=== PATIENT | female | born 1960 | race Caucasian/White ===

== ENCOUNTER 2022-02-18 08:00 | Outpatient (CLI) | payer OTHER | END 2022-02-18 23:59 | disposition home or self-care (01) | LOC: LAB.N 08:00 | PROVIDERS: ATTEND Physician Assistant Medical | DX: R30.0 Dysuria (principal) | CPT/HCPCS: 87086 ==

== ENCOUNTER 2022-02-23 11:08 | Outpatient (CLI) | payer OTHER ==
[2022-02-23 19:02] LABS: BASOPHILS % (AUTO) 0.5 %; EOSINOPHILS # (AUTO) 0.3 10^3/uL (0.0-0.7); EOSINOPHILS % (AUTO) 4.9 %; HCT - HEMATOCRIT 40.3 % (37.0-47.0); HGB - HEMOGLOBIN 12.9 g/dL (12.0-16.0); LYMPHOCYTES # (AUTO) 1.8 10^3/uL (1.5-3.5); LYMPHOCYTES % (AUTO) 31.8 %; MEAN CORPUSCULAR HEMOGLOBIN 28.6 pg (27.0-31.0); MEAN CORPUSCULAR VOLUME 89.4 fL (81.0-99.0); MEAN PLATELET VOLUME 11.5 fL (7.9-10.8); MONOCYTES # (AUTO) 0.4 10^3/uL (0.0-1.0); MONOCYTES % (AUTO) 7.7 %; NEUTROPHILS # (AUTO) 3.1 10^3/uL (1.5-6.6); NEUTROPHILS % (AUTO) 54.9 %; PLT - PLATELET COUNT 181 10^3/uL (130-450); RED BLOOD COUNT 4.51 10^6/uL (4.20-5.40); RED CELL DISTRIBUTION WIDTH 12.8 % (12.0-15.0); WHITE BLOOD COUNT 5.7 x10^3/uL (4.8-10.8)
[2022-02-23 19:37] LABS: ALBUMIN 4.2 g/dL (3.2-5.5); ALBUMIN/GLOBULIN RATIO 1.5 (1.0-2.2); ALKALINE PHOSPHATASE 57 IU/L (42-121); ALT ALANINE AMINOTRANSFERASE 19 IU/L (10-60); AST ASPARTATE AMINOTRANSFERASE 19 IU/L (10-42); BILIRUBIN,TOTAL 0.7 mg/dL (0.2-1.0); BUN - BLOOD UREA NITROGEN 20 mg/dL (6-20); CALCIUM 9.2 mg/dL (8.5-10.3); CARBON DIOXIDE - CO2 28 mmol/L (21-32); CHLORIDE 103 mmol/L (101-111); CHOL/HDL RATIO 3.2 (<4.4); CHOLESTEROL 159 mg/dL; CREATININE 0.7 mg/dL (0.4-1.0); GFR - MDRD 85 (>89); GLUCOSE 198 mg/dL (70-100); HDL CHOLESTEROL 49 mg/dL; LDL CHOLESTEROL,CALCULATED 92 mg/dL; LDL/HDL RATIO 1.9 (<4.4); POTASSIUM 4.4 mmol/L (3.5-5.0); SODIUM 139 mmol/L (135-145); TRIGLYCERIDES 88 mg/dL; VLDL CHOLESTEROL 18 mg/dL
[2022-02-25 08:04] LABS: ESTIMATED AVERAGE GLUCOSE 206 mg/dL (70-100); HEMOGLOBIN A1c% 8.8 % (4.27-6.07)
== END 2022-02-23 11:09 | disposition home or self-care (01) ==
LOC: LAB.N 11:08
PROVIDERS: ATTEND Physician Assistant Medical
DX: E11.9 Type 2 diabetes mellitus without complications (principal)
CPT/HCPCS: 36415; 80053; 80061; 83036; 83721; 84443; 85025

== ENCOUNTER 2022-06-17 08:00 | Outpatient (CLI) | payer OTHER | END 2022-06-17 23:59 | disposition home or self-care (01) | LOC: LAB.N 08:00 | PROVIDERS: ATTEND Nurse Practitioner | DX: R30.0 Dysuria (principal) | CPT/HCPCS: 87077; 87086; 87181 ==

== ENCOUNTER 2022-08-22 08:00 | Outpatient (CLI) | payer OTHER | END 2022-08-22 23:59 | disposition home or self-care (01) | LOC: LAB 08:00 | PROVIDERS: ATTEND Nurse Practitioner | DX: R30.0 Dysuria (principal) | CPT/HCPCS: 87077; 87086; 87181 ==

== ENCOUNTER 2022-12-03 10:33 | Outpatient (CLI) | payer OTHER ==
[2022-12-03 12:43] LABS: ALBUMIN 4.3 g/dL (3.2-5.5); ALBUMIN/GLOBULIN RATIO 1.8 (1.0-2.2); BILIRUBIN,TOTAL 0.5 mg/dL (0.2-1.0); CALCIUM 9.4 mg/dL (8.5-10.3); CREATININE 0.8 mg/dL (0.6-1.3); POTASSIUM 4.4 mmol/L (3.5-4.5); TOTAL PROTEIN 6.7 g/dL (6.4-8.9)
[2022-12-03 12:51] LABS: ESTIMATED AVERAGE GLUCOSE 217 mg/dL (70-100); HEMOGLOBIN A1c% 9.2 % (4.27-6.07)
[2022-12-03 18:12] LABS: CREATININE,URINE 130.6 mg/dL; MICROALBUM/CREATININE RATIO,UR 6.1 ug/mg (<30.0); MICROALBUMIN,URINE 0.8 mg/dL
== END 2022-12-03 10:34 | disposition home or self-care (01) ==
LOC: LAB.N 10:33
PROVIDERS: ATTEND Physician Assistant
DX: E11.9 Type 2 diabetes mellitus without complications (principal)
CPT/HCPCS: 36415; 80053; 82043; 82570; 83036

== ENCOUNTER 2023-03-19 08:05 | Outpatient (CLI) | payer OTHER ==
[2023-03-19 12:06] LABS: BASOPHILS % (AUTO) 0.7 %; EOSINOPHILS # (AUTO) 0.3 10^3/uL (0.0-0.7); EOSINOPHILS % (AUTO) 5.7 %; HCT - HEMATOCRIT 41.4 % (37.0-47.0); HGB - HEMOGLOBIN 13.5 g/dL (12.0-16.0); LYMPHOCYTES # (AUTO) 1.6 10^3/uL (1.5-3.5); LYMPHOCYTES % (AUTO) 29.6 %; MEAN CORPUSCULAR HEMOGLOBIN 29.2 pg (27.0-31.0); MEAN CORPUSCULAR HGB CONC 32.6 g/dL (32.0-36.0); MEAN CORPUSCULAR VOLUME 89.4 fL (81.0-99.0); MONOCYTES # (AUTO) 0.4 10^3/uL (0.0-1.0); NEUTROPHILS # (AUTO) 3.1 10^3/uL (1.5-6.6); NEUTROPHILS % (AUTO) 55.8 %; PLT - PLATELET COUNT 224 10^3/uL (130-450); RED BLOOD COUNT 4.63 10^6/uL (4.20-5.40); RED CELL DISTRIBUTION WIDTH 12.9 % (12.0-15.0); WHITE BLOOD COUNT 5.5 x10^3/uL (4.8-10.8)
[2023-03-19 12:19] LABS: ALBUMIN 4.3 g/dL (3.2-5.5); ALBUMIN/GLOBULIN RATIO 1.7 (1.0-2.2); ALKALINE PHOSPHATASE 72 IU/L (42-121); ALT ALANINE AMINOTRANSFERASE 13 IU/L (10-60); AST ASPARTATE AMINOTRANSFERASE 13 IU/L (10-42); BILIRUBIN,TOTAL 0.4 mg/dL (0.2-1.0); BUN - BLOOD UREA NITROGEN 13 mg/dL (6-20); CALCIUM 10.8 mg/dL (8.5-10.3); CARBON DIOXIDE - CO2 29 mmol/L (21-32); CHLORIDE 104 mmol/L (101-111); CHOL/HDL RATIO 4.6 (<4.4); CHOLESTEROL 237 mg/dL; CREATININE 0.8 mg/dL (0.6-1.3); GFR - MDRD 72 (>89); GLUCOSE 245 mg/dL (74-104); HDL CHOLESTEROL 52 mg/dL; LDL CHOLESTEROL,CALCULATED 151 mg/dL; LDL/HDL RATIO 2.9 (<4.4); POTASSIUM 4.7 mmol/L (3.5-4.5); SODIUM 138 mmol/L (135-145); TOTAL PROTEIN 6.8 g/dL (6.4-8.9); TRIGLYCERIDES 170 mg/dL (48-352); VLDL CHOLESTEROL 34 mg/dL
[2023-03-19 13:03] LABS: ESTIMATED AVERAGE GLUCOSE 186 mg/dL (70-100); HEMOGLOBIN A1c% 8.1 % (4.27-6.07)
== END 2023-03-19 08:06 | disposition home or self-care (01) ==
LOC: LAB.N 08:05
PROVIDERS: ATTEND Physician Assistant
DX: E11.9 Type 2 diabetes mellitus without complications (principal); E78.5 Hyperlipidemia, unspecified
CPT/HCPCS: 36415; 80053; 80061; 83036; 83721; 85025

== ENCOUNTER 2023-05-15 12:55 | Outpatient (CLI) | payer OTHER ==
--- NOTE | 2023-05-23 09:14 | Mammography Report ---
BILATERAL DIGITAL SCREENING MAMMOGRAM 3D/2D: 05/15/2023 CLINICAL: Routine screening. Family history of breast cancer. No prior exams were available for comparison. Both breasts are heterogeneously dense, which may obscure small masses (category c / 51-75% glandular tissue). There is a possible asymmetry in the right breast anterior depth central to the nipple seen on the cr aniocaudal view only. There is possible architectural distortion associated with the asymmetry. There is a focal asymmetry in the left breast central to the nipple middle depth. No other significant masses or calcifications are seen in either breast. IMPRESSION: INCOMPLETE: NEEDS ADDITIONAL IMAGING EVALUATION The possible asymmetry with questionable distortion in the right breast anterior depth central to the nipple seen on the craniocaudal view only is indeterminate. Additional views with possible ultrasou nd are recommended. The focal asymmetry in the left breast central to the nipple middle depth is indeterminate. Addition al views with possible ultrasound are recommended. Based on the Tyrer Cuzick model (a risk assessment model) the patient's lifetime risk is 12.7% and he r 10 year risk is 6.0%. According to the ACR, ACS, and NCCN guidelines, an annual breast MRI exam susie ng with mammogram is recommended if the patient's lifetime risk is 20% or greater. This exam was interpreted at Station ID: [id number]. NOTE: For mammograms, a report in lay terms will be sent to the patient. Approximately 15% of breast malignancies will not be visualized mammographically. In the management of a palpable breast mass, a negative mammogram must not discourage biopsy of a clinically suspicious lesion. Electronically Signed By: Bijan Potts M.D. lc/:05/22/2023 11:40:46 ACR BI-RADS Category 0: Incomplete 3340F PARENCHYMAL PATTERN: (D) - The breast(s) demonstrate(s) heterogeneously dense fibroglandular parenchy ma. BI-RADS CATEGORY: (0) - 0 Mammo and [place] [id number] Immediate follow-up LATERALITY: (B)
== END 2023-05-15 12:56 | disposition home or self-care (01) ==
LOC: DI.N 12:55
DX: Z12.31 Encounter for screening mammogram for malignant neoplasm of breast (principal); Z80.3 Family history of malignant neoplasm of breast; R92.333 Mammographic heterogeneous density, bilateral breasts; R92.8 Other abnormal and inconclusive findings on diagnostic imaging of breast

== ENCOUNTER 2023-06-03 12:07 | Emergency (ER) | payer OTHER ==
[2023-06-03 12:35] LABS: BASOPHILS % (AUTO) 0.3 %; EOSINOPHILS # (AUTO) 0.2 10^3/uL (0.0-0.7); EOSINOPHILS % (AUTO) 3.9 %; HCT - HEMATOCRIT 42.8 % (37.0-47.0); HGB - HEMOGLOBIN 13.8 g/dL (12.0-16.0); LYMPHOCYTES # (AUTO) 1.8 10^3/uL (1.5-3.5); LYMPHOCYTES % (AUTO) 30.5 %; MEAN CORPUSCULAR HEMOGLOBIN 28.8 pg (27.0-31.0); MEAN CORPUSCULAR HGB CONC 32.2 g/dL (32.0-36.0); MEAN CORPUSCULAR VOLUME 89.4 fL (81.0-99.0); MEAN PLATELET VOLUME 10.5 fL (7.9-10.8); MONOCYTES # (AUTO) 0.5 10^3/uL (0.0-1.0); MONOCYTES % (AUTO) 9.1 %; NEUTROPHILS # (AUTO) 3.3 10^3/uL (1.5-6.6); PLT - PLATELET COUNT 203 10^3/uL (130-450); RED BLOOD COUNT 4.79 10^6/uL (4.20-5.40)
--- NOTE | 2023-06-03 12:36 | ED Physician Documentation ---
PD HPI FOCAL NEURO - Stated complaint Stated Complaint: SLURRED SPEECH/DIZZINESS - Chief complaint Chief Complaint: Critical Care - History obtained from History obtained from: Patient, Family (sister) - Additional information Additional information: Patient is a 62-year-old female with a history of Hyperlipidemia, diabetes presenting for evaluation of abnormal speech, feeling unsteady, blurred vision. 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 She got up and went to try to walk to the nurses office to have her blood sugar checked as she was concerned it could be too low but felt quite unsteady doing so. The nurse was unable to check her blood sugar so patient then walked to the cafeteria where her sister was. Sister also noted that her speech was abnormal. Sister helped her back into the car and drove her here. Sister reports her speech does sound better but patient still reports feeling unsteady and having blurred vision. She does report having a left-sided headache initially that resolved.She does not take aspirin or any other blood thinners. Denies history of prior strokes or TIAs. Denies recent illness. Denies head injury or trauma. Review of Systems Constitutional: denies: Fever Cardiac: denies: Chest pain / pressure Respiratory: denies: Dyspnea GI: denies: Abdominal Pain, Vomiting : denies: Dysuria Neurologic: reports: Difficulty speaking, Headache. denies: Head injury PD PAST MEDICAL HISTORY - Present Medications Home Medications: Ambulatory Orders Medication Instructions Recorded Confirmed Aspirin Chewable [[place] 81 mg PO DAILY #30 tablet 06/03/23 Aspirin] Atorvastatin [Lipitor] 40 mg PO QPM 30 Days #60 tablet 06/03/23 Empagliflozin [Jardiance] 25 mg PO DAILY 06/03/23 Glimepiride 5 mg PO BID 06/03/23 Meclizine HCl [Motion Sickness] 25 mg PO Q6H PRN #20 tablet 06/03/23 Propranolol [Inderal] 10 mg PO DAILY 06/03/23 metFORMIN [Glucophage] 1,000 mg PO BID 06/03/23 - Allergies Allergies/Adverse Reactions: Allergies Allergy/AdvReac Type Severity Reaction Status Date / Time No Known Drug Allergies Allergy Verified 06/03/23 12:15 PD ED PE NORMAL - General General: Alert and oriented X 3, No acute distress, Well developed/nourished - HEENT HEENT: Atraumatic, PERRL, EOMI, Moist mucous membranes, Pharynx benign - Neck Neck: Supple, no meningeal sign - Cardiac Cardiac: RRR, Strong equal pulses - Respiratory Respiratory: No respiratory distress, Clear bilaterally - Abdomen Abdomen: Normal bowel sounds, Soft, Non tender, Non distended - Derm Derm: Warm and dry - Neuro Neuro: Alert and oriented X 3, tie inspector 2-12 intact, No motor deficit, No sensory deficit, Normal speech, Other (Difficulties with dcyphh-if-mobr with left hand) NIHSS - Level of Consciousness Level of consciousness: (0) Alert, Keenly responsive LOC Questions: (0) Answers both Q's correct LOC Commands: (0) Performs both correctly - Gaze Best Gaze: (0) Normal - Visual Visual: (0) No loss - Facial Palsy Facial Palsy: (0) Normal, symmetrical movement - Motor Arms (both separate) Motor Arm (right): (0) No drift Motor Arm (left): (0) No drift - Motor Legs (both separate) Motor Leg (right): (0) No drift Motor Leg (left): (0) No drift - Limb Ataxia Limb Ataxia: (1) Present in 1 limb - Best Language Best Language: (0) No aphasia - Dysarthria Dysarthria: (0) Normal - Extinction and Inattention (formally neg Extinction and inattention: (0) No abnormality Results - Vitals Vitals: Vital Signs - 24 hr 06/03/23 06/03/23 06/03/23 12:09 12:41 12:54 Temperature 36.8 C 36.2 C L Heart Rate 82 77 77 Respiratory 16 19 15 Rate Blood Pressure 141/80 H 136/82 H 134/80 H O2 Saturation 98 96 97 06/03/23 06/03/23 06/03/23 13:16 13:30 14:30 Temperature 36.8 C Heart Rate 74 72 76 Respiratory 19 16 19 Rate Blood Pressure 129/82 H 133/83 H 136/82 H O2 Saturation 96 97 96 06/03/23 06/03/23 06/03/23 15:00 15:30 17:00 Temperature 36.8 C Heart Rate 80 82 81 Respiratory 16 16 20 Rate Blood Pressure 114/66 112/64 123/77 O2 Saturation 97 94 95 06/03/23 17:50 Temperature 36.8 C Heart Rate 83 Respiratory 18 Rate Blood Pressure 121/80 O2 Saturation 98 Oxygen O2 Source Room air - EKG (time done) 1217 EKG releavant findings:: EKG personally interpreted by author of this note. Relevant findings are: Rate 74, normal sinus rhythm, no STEMI - Labs Labs: Laboratory Tests 06/03/23 06/03/23 06/03/23 12:20 12:20 12:20 WBC 6.0 RBC 4.79 Hgb 13.8 Hct 42.8 MCV 89.4 MCH 28.8 MCHC 32.2 RDW 13.0 Plt Count 203 MPV 10.5 Neut # (Auto) 3.3 Lymph # (Auto) 1.8 [place] # (Auto) 0.5 Eos # (Auto) 0.2 Baso # (Auto) 0.0 Absolute Nucleated RBC 0.00 Nucleated RBC % 0.0 PT 10.7 INR 1.0 Sodium 140 Potassium 4.3 Chloride 106 Carbon Dioxide 26 Anion Gap 8.0 BUN 14 Creatinine 0.7 Estimated GFR (MDRD) 84 L Glucose 216 H POC Whole Bld Glucose Calcium 9.4 Total Bilirubin 0.4 AST 14 ALT 12 Alkaline Phosphatase 58 Troponin I High Sens 2.3 Total Protein 7.1 Albumin 4.4 Globulin 2.7 Albumin/Globulin Ratio 1.6 Lipase 216 H 06/03/23 12:24 WBC RBC Hgb Hct MCV MCH MCHC RDW Plt Count MPV Neut # (Auto) Lymph # (Auto) [place] # (Auto) Eos # (Auto) Baso # (Auto) Absolute Nucleated RBC Nucleated RBC % PT INR Sodium Potassium Chloride Carbon Dioxide Anion Gap BUN Creatinine Estimated GFR (MDRD) Glucose POC Whole Bld Glucose 204 H Calcium Total Bilirubin AST ALT Alkaline Phosphatase Troponin I High Sens Total Protein Albumin Globulin Albumin/Globulin Ratio Lipase PD Medical Decision Making - ED course Complexity details: reviewed results, re-evaluated patient, d/w patient, d/w family ED course: Patient is a 62-year-old female presenting for evaluation of abnormal speech, di zziness, blurred vision occurring just shortly prior to arrival. Patient was evaluated as a code stroke. CT head is negative for intracranial hemorrhage. CT angio head and neck is negative for any occlusion or stenosis. She was seen by telestroke who did not recommend TNK as her symptoms have completely resolved and her NIH score is 0. Telestroke did have some suspicion that this could be related to a complex migraine. Did recommend aspirin and a statin as well as an MRI which we are able to obtain here. She remained symptom-free and was ambulating without any difficulty here. MRI is negative for stroke. Reviewed workup with patient and family member at bedside. As her symptoms have completely resolved and remained resolved here she is comfortable with plan for discharge. We discussed possible etiologies of her symptoms including a TIA, complex migraine, vertigo. She is concerned that the unsteady feeling that she had earlier may come back so we discussed having a prescription of meclizine to try at home which she is agreeable to. However she also understands she needs to take her aspirin and statin and have close follow-up with her primary care provider. Patient counseled on strict return precautions for Worsening symptoms. 1244 - D/W Telestroke, Dr. Bobby. He will evaluate the patient. He feel based on the history with preceeding headache that this is likely headache with aura. 1253 - Telestroke has seen pt. NIH 0. No TNK. Departure - Departure Disposition: 01 Home, Self Care Clinical Impression: TIA (transient ischemic attack), Dizziness, Slurred speech Condition: Stable Instructions: ED Transient Ischemic Attack, ED Vertigo Unspecified Follow-Up: Antonieta Monsalve PA-C [Primary Care Provider] - Within 1 week Prescriptions: Atorvastatin [Lipitor] 40 mg PO QPM 30 Days #60 tablet Meclizine HCl [Motion Sickness] 25 mg PO Q6H PRN #20 tablet PRN Reason: Dizziness Aspirin Chewable [[place] Aspirin] 81 mg PO DAILY #30 tablet Comments: You were evaluated for symptoms concerning for stroke. You had a CT scan which did not show any signs of bleeding in the brain. You also had another CT scan to look at the blood vessels in your brain and there was no signs of any blockages. You had an MRI to look for a stroke which was negative. Your symptoms could be related to something like a mini stroke or a complex migraine. As you are feeling better I feel this is reassuring. The neurologist has recommended that we continue you on a baby aspirin as well as a statin every day. I have sent these prescriptions to [facility] and would recommend you take these and arrange for close follow-up with your primary care provider. You have also reported some symptoms of dizziness which largely have improved but I have also sent a prescription for medication called meclizine which is an antivertigo medication to see if this helps with those symptoms. I again I do think you need close follow-up with your primary care. Return to the ER if you develop any worsening symptoms. Please hold your metformin as per the directions given to you by the instructional media services technician. Forms: PCP List, Activity restrictions Discharge Date/Time: 06/03/23 17:51
[2023-06-03 12:40] LABS: PT - PROTHROMBIN TIME 10.7 secs (9.9-12.6)
[2023-06-03 12:49] LABS: ALBUMIN 4.4 g/dL (3.2-5.5); ALBUMIN/GLOBULIN RATIO 1.6 (1.0-2.2); BILIRUBIN,TOTAL 0.4 mg/dL (0.2-1.0); CALCIUM 9.4 mg/dL (8.5-10.3); CREATININE 0.7 mg/dL (0.6-1.3); POTASSIUM 4.3 mmol/L (3.5-4.5); TOTAL PROTEIN 7.1 g/dL (6.4-8.9)
[2023-06-03] MEDS ORDERED: iohexoL-300 100 ML VIAL ONE (12:50)
--- NOTE | 2023-06-03 12:50 | CT Report ---
PROCEDURE: Head W/O Stroke Protocol INDICATIONS: dizzy/blurred vision/abnormal speech TECHNIQUE: Noncontrast 4.5 mm thick angled axial sections acquired from the foramen magnum to the vertex, with c oronal reformats. For radiation dose reduction, the following was used: automated exposure control, adjustment of mA and/or kV according to patient size. COMPARISON: None. FINDINGS: Image quality: Excellent CSF spaces: Basal cisterns are patent. Lateral ventricles are symmetric. Volume: Mild volume loss Brain: No acute hemorrhage or gross loss of borja-white differentiation. Small likely nonacute calcifi cation at the right venous sinus. Craniofacial structures: No significant paranasal sinus opacification. IMPRESSION: No acute hemorrhage. No gross loss of borja-white differentiation. If there is high concern for infarc t, consider MRI. Report called to ED. This study fulfills neurological imaging criteria for inclusion or exclusion of acute stroke therapie s based on available published neurological imaging guidelines. Reviewed by: Bijan oPtts MD on 06/03/2023 12:49 PM PST Approved by: Bijan Potts MD on 06/03/2023 12:49 PM PST Station ID: [id number]
[2023-06-03 12:55] LABS: TROPONIN I HIGH SENSITIVITY 2.3 ng/L (2.3-14.8)
--- NOTE | 2023-06-03 13:18 | CT Report ---
PROCEDURE: Angio Head/Neck INDICATIONS: dizzy/blurred vision/abnormal speech CONTRAST: Omni 300 80ml TECHNIQUE: After the administration of intravenous contrast, 1.5 mm axial sections acquired from the aortic arch to the [place] of [place]. Coronal 3-D maximum intensity projection (MIP) and/or volume rendering ref ormats were then performed. For radiation dose reduction, the following was used: automated exposur e control, adjustment of mA and/or kV according to patient size. COMPARISON: Same-day CT head FINDINGS: Image quality: Diagnostic Head angiography Anterior circulation: ICAs: normal and symmetric. The proximal ophthalmic arteries appear patent. The distal branches not w ell evaluated ACAs: normal and symmetric MCAs: normal and symmetric AComm: no aneurysm Venous sinuses: Not well evaluated, no occlusive thrombus identified Posterior circulation: Dominance: equal Vertebral arteries: no stenosis, occlusion, or aneurysm Basilar artery: unremarkable PComms: no aneurysm assembler installer structures: normal and symmetric Neck angiography Aortic arch and subclavian arteries: normal flow CCAs: no stenosis, occlusion, or aneurysm. ICA origins (by NASCET criteria): no hemodynamically significant narrowing. ICAs: no stenosis, occlusion or aneurysm. ECAs: origins are patent. Vertebral arteries: unremarkable Soft tissues: no significant mass, aneurysm, or lymphadenopathy Lung apices: no pneumothorax Bones: no acute or suspicious abnormality. Suspected sequela of dental disease. IMPRESSION: No high-grade stenosis or large vessel occlusion. If there is high concern for infarct, consider MRI. Any measurements of vessel stenosis was performed with NASCET criteria. Reviewed by: Bijan Potts MD on 06/03/2023 1:17 PM PST Approved by: Bijan Potts MD on 06/03/2023 1:17 PM PST Station ID: [id number]
[2023-06-03] MEDS: ASPIRIN CHEW 81 MG TABLET PO STA (13:40)
[2023-06-03] MEDS: SODIUM CHLORIDE 0.9% 500 ML IV STA (13:41)
[2023-06-03] MEDS: iohexoL-300 100 ML VIAL IVP ONE (16:17)
--- NOTE | 2023-06-03 16:56 | MRI Report ---
PROCEDURE: Brain WO INDICATIONS: blurred vision/abnormal gait/slurred speech TECHNIQUE: Noncontrast axial T1 spin echo, axial T2 fast spin echo, sagittal and axial FLAIR, coronal T2 fast sp in echo, axial gradient echo, axial diffusion and ADC through the brain. COMPARISON: None. FINDINGS: Image quality: Excellent. CSF Spaces: Basal cisterns are patent. No extra-axial fluid collections. Ventricles are normal in size and shape. Brain: No intracranial masses or hemorrhage. Puri/white matter interface is normal. Brainstem appe ars normal. Diffusion-weighted images demonstrate no acute ischemic insult. No chronic ischemic ins ults. Normal intravascular flow voids are present. Skull and face: Calvarium has normal marrow signal. Orbits appear normal. Sinuses: Sinuses and mastoids are clear. IMPRESSION: 1. No acute process. 2. No recent infarct. Reviewed by: Pito Bobby MD on 06/03/2023 4:55 PM PST Approved by: Pito Bobby MD on 06/03/2023 4:55 PM PST Station ID: [id number]
[2023-06-03 17:54] VITALS: BP 121/80; O2SAT 98
== END 2023-06-03 17:51 | disposition home or self-care (01) ==
LOC: ED 12:07
DX: G45.9 Transient cerebral ischemic attack, unspecified (principal); E11.9 Type 2 diabetes mellitus without complications; Z79.84 Long term (current) use of oral hypoglycemic drugs; Z79.01 Long term (current) use of anticoagulants
CPT/HCPCS: 36415; 70450; 70496; 70498; 70551; 80053; 83690; 84484; 85025; 85610; 93005; 99284; A9270; Q9967

== ENCOUNTER 2023-06-18 08:10 | Outpatient (CLI) | payer OTHER ==
--- NOTE | 2023-06-19 08:34 | Mammography Report ---
BILATERAL DIGITAL DIAGNOSTIC MAMMOGRAM 3D/2D WITH LATEROMEDIAL SPOT COMPRESSION: 06/18/2023 CLINICAL: Patient returns today to evaluate asymmetries in bilateral breasts. Comparison is made to exams dated: 05/15/2023 mammogram - [facility], 08/21/2021 mamm ogram, and 01/17/2021 mammogram - [facility]. Both breasts are heterogeneously dense, which may obscure small masses (category c / 51-75% glandular tissue). There is a possible asymmetry in the right breast anterior depth central to the nipple seen on the cr aniocaudal view only. This is less prominent. There is a possible focal asymmetry in the left breast central to the nipple middle depth. This is l ess prominent. No other significant masses or calcifications are seen in either breast. IMPRESSION: INCOMPLETE: NEEDS ADDITIONAL IMAGING EVALUATION The possible asymmetry in the right breast anterior depth central to the nipple seen on the craniocau gloria view only is indeterminate. The possible focal asymmetry in the left breast central to the nipple middle depth is indeterminate. Recommend a second look with ultrasound which will immediately follow. Based on the Tyrer Cuzick model (a risk assessment model) the patient's lifetime risk is 12.7% and he r 10 year risk is 6.0%. According to the ACR, ACS, and NCCN guidelines, an annual breast MRI exam susie ng with mammogram is recommended if the patient's lifetime risk is 20% or greater. This exam was interpreted at Station ID: [id number]. NOTE: For mammograms, a report in lay terms will be sent to the patient. Approximately 15% of breast malignancies will not be visualized mammographically. In the management of a palpable breast mass, a negative mammogram must not discourage biopsy of a clinically suspicious lesion. Electronically Signed By: Roni Atwood M.D. slc/:06/18/2023 10:40:42 ACR BI-RADS Category 0: Incomplete 3340F PARENCHYMAL PATTERN: (D) - The breast(s) demonstrate(s) heterogeneously dense fibroglandular parenchy ma. BI-RADS CATEGORY: (0) - 0 Ultrasound [id number] Immediate follow-up LATERALITY: (B)
--- NOTE | 2023-06-19 08:34 | Ultrasound Report ---
LIMITED ULTRASOUND OF RIGHT BREAST: 06/18/2023 CLINICAL: Patient returns today to evaluate asymmetries in bilateral breasts. Comparison is made to exams dated: 06/18/2023 ultrasound, 06/18/2023 mammogram, 05/15/2023 mammogram - [facility], 09/24/2021 ultrasound, 08/21/2021 mammogram, and 07/12/2021 ultrasound - [facility]. Real-time ultrasound of the right breast 12 o'clock, and retroareolar regions was performed. Puri sc fatoumata images of the real-time examination were reviewed. No significant abnormalities were seen sonographically in the right breast. IMPRESSION: NEGATIVE There is no sonographic evidence of malignancy. A 1 year screening mammogram is recommended. Exam findings were conveyed to the patient. This exam was interpreted at Station ID: [id number]. Electronically Signed By: Roni Atwood M.D. slc/:06/18/2023 10:58:12 Ultrasound BI-RADS: 1 Negative BI-RADS CATEGORY: (1) - 1 RECOMMENDATION: (ANNUAL) - Recommend routine annual screening mammography. [id number] 1 year screening LATERALITY: (B)
--- NOTE | 2023-06-19 08:34 | Ultrasound Report ---
LIMITED ULTRASOUND OF LEFT BREAST: 06/18/2023 CLINICAL: Patient returns today to evaluate asymmetries in bilateral breasts. Comparison is made to exams dated: 06/18/2023 mammogram, 05/15/2023 mammogram - [facility], 08/21/2021 mammogram, and 01/17/2021 mammogram - [facility]. Real-time ultrasound of the left breast 12 o'clock, and retroareolar regions was performed. Puri sca le images of the real-time examination were reviewed. No significant abnormalities were seen sonographically in the left breast. IMPRESSION: NEGATIVE There is no sonographic evidence of malignancy. A 1 year screening mammogram is recommended. Exam findings were conveyed to the patient. This exam was interpreted at Station ID: [id number]. Electronically Signed By: Roni Atwood M.D. slc/:06/18/2023 10:59:47 Ultrasound BI-RADS: 1 Negative BI-RADS CATEGORY: (1) - 1 RECOMMENDATION: (ANNUAL) - Recommend routine annual screening mammography. [id number] 1 year screening LATERALITY: (B)
== END 2023-06-18 08:11 | disposition home or self-care (01) ==
LOC: DI 08:10
PROVIDERS: ATTEND Physician Assistant
DX: R92.8 Other abnormal and inconclusive findings on diagnostic imaging of breast (principal); R92.333 Mammographic heterogeneous density, bilateral breasts

== ENCOUNTER 2023-07-22 08:03 | Outpatient (CLI) | payer OTHER | END 2023-07-22 08:04 | disposition home or self-care (01) | LOC: LAB.N 08:03 | PROVIDERS: ATTEND Physician Assistant | DX: Z53.9 Procedure and treatment not carried out, unspecified reason (principal) | CPT/HCPCS: 36415; 80053; 80061; 83036; 83721 ==

== ENCOUNTER 2023-08-02 11:44 | Outpatient (CLI) | payer OTHER ==
[2023-08-02 19:12] LABS: ALBUMIN 4.4 g/dL (3.2-5.5); ALBUMIN/GLOBULIN RATIO 2.1 (1.0-2.2); ALKALINE PHOSPHATASE 57 IU/L (42-121); ALT ALANINE AMINOTRANSFERASE 11 IU/L (10-60); AST ASPARTATE AMINOTRANSFERASE 13 IU/L (10-42); BILIRUBIN,TOTAL 0.6 mg/dL (0.2-1.0); BUN - BLOOD UREA NITROGEN 12 mg/dL (6-20); CALCIUM 9.7 mg/dL (8.5-10.3); CARBON DIOXIDE - CO2 28 mmol/L (21-32); CHLORIDE 108 mmol/L (101-111); CHOL/HDL RATIO 2.7 (<4.4); CHOLESTEROL 133 mg/dL; CREATININE 0.7 mg/dL (0.6-1.3); GFR - MDRD 84 (>89); GLUCOSE 149 mg/dL (74-104); HDL CHOLESTEROL 50 mg/dL; LDL CHOLESTEROL,CALCULATED 68 mg/dL; LDL/HDL RATIO 1.4 (<4.4); POTASSIUM 4.4 mmol/L (3.5-4.5); SODIUM 142 mmol/L (135-145); TOTAL PROTEIN 6.5 g/dL (6.4-8.9); TRIGLYCERIDES 76 mg/dL (48-352); VLDL CHOLESTEROL 15 mg/dL
[2023-08-02 19:24] LABS: BILIRUBIN,URINE NEGATIVE (NEGATIVE); GLUCOSE, URINE (UA) >=1000 mg/dL (NEGATIVE); KETONES,URINE (UA) NEGATIVE (NEGATIVE); LEUKOCYTE ESTERASE, URINE NEGATIVE (NEGATIVE); NITRITE,URINE NEGATIVE (NEGATIVE); OCCULT BLOOD,URINE NEGATIVE (NEGATIVE); PH,URINE 5.5 PH (5.0-7.5); PROTEIN,URINE NEGATIVE (NEGATIVE); UROBILINOGEN,URINE 0.2 (NORMAL) E.U./dL (NORMAL)
[2023-08-02 19:58] LABS: CLARITY,URINE CLEAR (CLEAR)
[2023-08-03 08:00] LABS: ESTIMATED AVERAGE GLUCOSE 169 mg/dL (70-100); HEMOGLOBIN A1c% 7.5 % (4.27-6.07)
== END 2023-08-02 11:45 | disposition home or self-care (01) ==
LOC: LAB.N 11:44
PROVIDERS: ATTEND Physician Assistant
DX: E11.9 Type 2 diabetes mellitus without complications (principal); R30.0 Dysuria
CPT/HCPCS: 36415; 80053; 80061; 81001; 81003; 83036; 83721; 87086